=== PATIENT | male | born 1980 | race Hispanic/Latino ===

== ENCOUNTER 2018-07-24 01:27 | Emergency (ER) | payer SELFPAY ==
[~2018-07-24] VITALS: Ht 172.7 cm; Wt 80.0 kg
[~2018-07-24 01:27] MED LIST: CORTISPORIN OP7.5 ML OP; GENTAMICIN SULF5 ML OP; NO
[2018-07-24] MEDS ORDERED: PERCOCET 5/325M1 TAB PO (02:44)
[2018-07-24] MEDS ORDERED: KEFLEX500 M1 PO (02:47)
[2018-07-24 03:10] VITALS: BP 145/82
== END 2018-07-24 03:10 | disposition home or self-care (01) | DRG 605 ==
LOC: ED 01:27
DX: S50.311A Abrasion of right elbow, initial encounter (principal); S50.811A Abrasion of right forearm, initial encounter; S50.01XA Contusion of right elbow, initial encounter; S50.11XA Contusion of right forearm, initial encounter; R22.31 Localized swelling, mass and lump, right upper limb; V28.4XXA Motorcycle driver injured in noncollision transport accident in traffic accident, initial encounter; Y92.411 Interstate highway as the place of occurrence of the external cause